=== PATIENT | male | born 1955 | race Caucasian/White ===

== ENCOUNTER 2016-07-28 08:29 | Outpatient (CLI) | payer MEDICAID | END 2016-07-28 23:59 | disposition home or self-care (01) | DX: I69.398 Other sequelae of cerebral infarction (principal); R56.9 Unspecified convulsions; E78.5 Hyperlipidemia, unspecified ==

== ENCOUNTER 2016-12-19 08:36 | Outpatient (CLI) | payer MEDICAID ==
[2016-12-19 13:32] LABS: BASOPHILS % (AUTO) 0.5 %; EOSINOPHILS # (AUTO) 0.1 10^3/uL (0.0-0.7); EOSINOPHILS % (AUTO) 2.4 %; HCT - HEMATOCRIT 41.1 % (42.0-52.0); LYMPHOCYTES # (AUTO) 1.8 10^3/uL (1.5-3.5); LYMPHOCYTES % (AUTO) 40.2 %; MEAN CORPUSCULAR HEMOGLOBIN 30.9 pg (27.0-31.0); MEAN CORPUSCULAR HGB CONC 34.1 g/dL (32.0-36.0); MEAN CORPUSCULAR VOLUME 90.8 fL (80.0-94.0); MEAN PLATELET VOLUME 7.9 fL (7.4-11.4); MONOCYTES # (AUTO) 0.3 10^3/uL (0.0-1.0); MONOCYTES % (AUTO) 7.6 %; NEUTROPHILS # (AUTO) 2.2 10^3/uL (1.5-6.6); NEUTROPHILS % (AUTO) 49.3 %; RED BLOOD COUNT 4.53 10^6/uL (4.70-6.10); RED CELL DISTRIBUTION WIDTH 13.4 % (12.0-15.0); UNCORRECTED WHITE BLOOD COUNT 4.4 x10^3/uL; WHITE BLOOD COUNT 4.4 x10^3/uL (4.8-10.8)
[2016-12-19 13:48] LABS: ALBUMIN/GLOBULIN RATIO 1.5 (1.0-2.2); CREATININE 0.9 mg/dL (0.6-1.2); POTASSIUM 3.7 mmol/L (3.5-5.0); TOTAL PROTEIN 6.8 g/dL (6.7-8.2)
[2016-12-23 17:57] LABS: TEST RESULT REPORT (())
== END 2016-12-19 08:37 | disposition home or self-care (01) ==
LOC: LAB.N 08:36
PROVIDERS: ATTEND Psychiatry & Neurology Neurology
DX: G40.209 Localization-related (focal) (partial) symptomatic epilepsy and epileptic syndromes with complex partial seizures, not intractable, without status epilepticus (principal)
CPT/HCPCS: 36415; 80053; 80175; 80201; 81599; 82607; 83921; 85025

== ENCOUNTER 2017-02-02 11:47 | Outpatient (CLI) | payer MEDICAID ==
[2017-02-02 19:42] LABS: ALBUMIN/GLOBULIN RATIO 1.6 (1.0-2.2); BILIRUBIN,TOTAL 0.8 mg/dL (0.2-1.0); CALCIUM 9.2 mg/dL (8.5-10.3); CREATININE 1.1 mg/dL (0.6-1.2); TOTAL PROTEIN 7.3 g/dL (6.7-8.2)
== END 2017-02-02 11:48 | disposition home or self-care (01) ==
LOC: LAB.N 11:47
PROVIDERS: ATTEND Family Medicine
DX: D50.0 Iron deficiency anemia secondary to blood loss (chronic) (principal)
CPT/HCPCS: 36415; 80053

== ENCOUNTER 2017-07-03 10:48 | Emergency (ER) | payer MEDICAID ==
[2017-07-03] MEDS ORDERED: CYCLOBENZAPRINE 10 MG TABLET PO STA (11:24)
[2017-07-03] MEDS ORDERED: LIDOCAINE PATCH 5% TOP PRN (11:24)
[2017-07-03] MEDS ORDERED: KETOROLAC 60 MG/2 ML VIAL IM STA (11:24)
[2017-07-03 11:28] LABS: BILIRUBIN,URINE NEGATIVE (NEGATIVE)
[2017-07-03 11:32] LABS: UA CHARGE (STRIP ONLY) YES; UR CULTURE IF IND NOT INDICATED
--- NOTE | 2017-07-03 12:08 | ED Physician Documentation ---
PD HPI BACK INJURY - Stated complaint Stated Complaint: BACK/FLANK PX - History of Present Illness Location: Left Type of injury: Fall Where injury occurred: Home Timing - onset: Yesterday Timing - details: Abrupt onset Quality: Pain, Spasm Associated symptoms: No: Fever, Weakness, Numbness Contributing factors: No: Anticoagulated, Prior back surgery Similar symptoms before: Has not had sx before Recently seen: Not recently seen - Additional information Additional information: Patient is a 61 year old male with no significant past medical history who is presenting to the emergency department for back pain. patient states that he was out walking his dog and it decided to run around and the patient fell over on the grass. patient states that he fell ok right after it happened but today he woke up and he had some pain in his back. Review of Systems Constitutional: denies: Fever, Chills Eyes: denies: Decreased vision Ears: reports: Reviewed and negative Nose: reports: Reviewed and negative Throat: reports: Reviewed and negative Cardiac: reports: Chest pain / pressure GI: denies: Nausea, Vomiting : denies: Hematuria Skin: denies: Abrasion (s), Laceration (s) Musculoskeletal: reports: Back pain Neurologic: denies: Generalized weakness, Focal weakness, Numbness PD PAST MEDICAL HISTORY - Past Medical History Past Medical History: Yes Cardiovascular: Congestive heart failure Neuro: CVA GI: GERD Psych: Depression, Anxiety - Past Surgical History Past Surgical History: Yes HEENT: Tonsil/Adenoidectomy - Present Medications Home Medications: Ambulatory Orders Medication Instructions Recorded Confirmed Aspirin [Aspir 81] 81 mg PO DAILY 09/23/13 07/03/17 Topiramate [Topamax] 50 mg PO BID 09/23/13 07/03/17 lamoTRIgine [Lamictal Odt] 200 mg PO TID 09/23/13 07/03/17 Cyclobenzaprine [Flexeril] 10 mg PO BID 07/03/17 07/03/17 Ibuprofen 600 mg PO Q6HR PRN 07/03/17 07/03/17 diazePAM [Valium] 5 - 10 mg PO TID PRN #15 tablet 07/03/17 - Allergies Allergies/Adverse Reactions: Allergies Allergy/AdvReac Type Severity Reaction Status Date / Time No Known Drug Allergies Allergy Verified 07/03/17 11:01 - Social History Does the pt smoke?: No Smoking Status: Never smoker Does the pt drink ETOH?: Yes Does the pt have substance abuse?: No - Immunizations Immunizations are current?: Yes PD ED PE NORMAL - General General: Alert and oriented X 3, No acute distress - HEENT HEENT: Atraumatic, PERRL - Neck Neck: Supple, no meningeal sign, No JVD - Cardiac Cardiac: RRR, No murmur - Respiratory Respiratory: No respiratory distress, Clear bilaterally - Abdomen Abdomen: Soft, Non tender, Non distended - Derm Derm: Normal color, Warm and dry, No rash - Extremities Extremities: No deformity, No edema - Neuro Neuro: Alert and oriented X 3, No motor deficit, No sensory deficit Eye Opening: Spontaneous Motor: Obeys Commands Verbal: Oriented GCS Score: 15 - Psych Psych: Normal mood PD ED PE EXPANDED - Back Back: Soft tissue tenderness (tenderness to palpation of left paraspinal and lateral region, no ecchymosis, no gross deformity) Results - Vitals Vitals: Vital Signs - 24 hr 07/03/17 10:53 Temperature 36.6 C Heart Rate 89 Respiratory 18 Rate Blood Pressure 156/105 H O2 Saturation 100 Oxygen O2 Source Room air - Labs Labs: Laboratory Tests 07/03/17 11:09 Urine Color YELLOW Urine Clarity CLEAR Urine pH 6.0 Ur Specific [place] >=1.030 H Urine Protein NEGATIVE Urine Glucose (UA) NEGATIVE Urine Ketones NEGATIVE Urine Occult Blood NEGATIVE Urine Nitrite NEGATIVE Urine Bilirubin NEGATIVE Urine Urobilinogen 0.2 (NORMAL) Ur Leukocyte Esterase NEGATIVE Ur Microscopic Review NOT INDICATED Urine Culture Comments NOT INDICATED PD MEDICAL DECISION MAKING - ED course Complexity details: reviewed old records, reviewed results, considered differential, d/w patient ED course: Patient was seen and examined at bedside. Patient was well appearing and had no sign of acute fracture or dislocation. patient was treated with toradol, lidoderm. Patient required no further work up and was stable for discharge with outpatient follow up. Departure - Departure Disposition: 01 Home, Self Care Clinical Impression: Back pain Condition: Good Instructions: IBUPROFEN (Adult), ANTI-INFLAMMATORY, General Follow-Up: Roby Herring MD [Primary Care Provider] - Prescriptions: diazePAM [Valium] 5 - 10 mg PO TID PRN #15 tablet PRN Reason: Spasms Comments: Your symptoms today are likely secondary to a muscle spasm. You will need to use ice and heat as necessary as well as ibuprofen and an occasional valium. You should follow up with your doctor if your symptoms persist. You may return to the emergency department at any time for new, worsening or uncontrollable symptoms.
--- NOTE | 2017-07-03 12:31 | XRAY Preliminary Report ---
Exam: XR RIBS W/PA CHEST LT IMPRESSION: Minimal lower thoracic compression fractures of unknown age. No rib fracture demonstrated. No hemothorax or pneumothorax. Small linear densities in the left lower lung, minimal atelectasis versus scarring. [facility] SITE ID: [id number]
--- NOTE | 2017-07-03 12:33 | XRAY Report ---
EXAM: LEFT RIB RADIOGRAPHY 3 VIEWS EXAM DATE: 07/03/2017. CLINICAL HISTORY: Pain. Slipped and fell. COMPARISON: None. TECHNIQUE: A view of the chest and anterior and posterior oblique views of the left ribs. FINDINGS: Bones: Mid and lower thoracic compression fracture of unknown age. No rib fracture demonstrated. Lungs: Normal vasculature. Small linear densities in the left lower lung. The lungs are otherwise kaleb ar. No pleural fluid or pneumothorax. Mediastinum: Heart size is normal. Mild aortic tortuosity, otherwise normal mediastinal contours. IMPRESSION: Minimal lower thoracic compression fractures of unknown age. No rib fracture demonstrated. No hemothorax or pneumothorax. Small linear densities in the left lower lung, minimal atelectasis versus scarring. [facility] Referring Provider Line: [phone] SITE ID: [id number]
[2017-07-03 12:50] VITALS: BP 139/99
== END 2017-07-03 12:49 | disposition home or self-care (01) ==
LOC: ED 10:48
DX: M54.9 Dorsalgia, unspecified (principal); W18.30XA Fall on same level, unspecified, initial encounter; I50.9 Heart failure, unspecified; Z79.82 Long term (current) use of aspirin
CPT/HCPCS: 71101; 81003; 96372; 99283; A9270; 81001; 87086

== ENCOUNTER 2017-08-07 10:15 | Outpatient (CLI) | payer MEDICAID ==
[2017-08-07 12:56] LABS: BASOPHILS % (AUTO) 0.4 %; EOSINOPHILS # (AUTO) 0.1 10^3/uL (0.0-0.7); EOSINOPHILS % (AUTO) 1.6 %; HGB - HEMOGLOBIN 14.1 g/dL (14.0-18.0); LYMPHOCYTES # (AUTO) 2.1 10^3/uL (1.5-3.5); LYMPHOCYTES % (AUTO) 37.4 %; MEAN CORPUSCULAR HEMOGLOBIN 30.9 pg (27.0-31.0); MEAN CORPUSCULAR HGB CONC 34.4 g/dL (32.0-36.0); MEAN PLATELET VOLUME 7.4 fL (7.4-11.4); MEAN RETIC VALUE 110.8; MONOCYTES # (AUTO) 0.3 10^3/uL (0.0-1.0); MONOCYTES % (AUTO) 5.1 %; NEUTROPHILS # (AUTO) 3.1 10^3/uL (1.5-6.6); NEUTROPHILS % (AUTO) 55.5 %; PLT - PLATELET COUNT 314 10^3/uL (130-450); RED BLOOD COUNT 4.55 10^6/uL (4.70-6.10); RED CELL DISTRIBUTION WIDTH 12.9 % (12.0-15.0); WHITE BLOOD COUNT 5.7 x10^3/uL (4.8-10.8)
[2017-08-07 13:27] LABS: FERRITIN 48.9 ng/mL (23.9-336.2)
[2017-08-07 13:31] LABS: FOLATE 20.01 ng/mL (5.90 - >24.8)
[2017-08-07 13:34] LABS: ALBUMIN 4.1 g/dL (3.2-5.5); ALBUMIN/GLOBULIN RATIO 1.4 (1.0-2.2); ALKALINE PHOSPHATASE 74 IU/L (42-121); ALT ALANINE AMINOTRANSFERASE 12 IU/L (10-60); AST ASPARTATE AMINOTRANSFERASE 16 IU/L (10-42); BUN - BLOOD UREA NITROGEN 12 mg/dL (6-20); CALCIUM 8.7 mg/dL (8.5-10.3); CARBON DIOXIDE - CO2 24 mmol/L (21-32); CHLORIDE 110 mmol/L (101-111); CHOL/HDL RATIO 4.8 (<5.0); CHOLESTEROL 236 mg/dL; GFR - MDRD 76 (>89); GLUCOSE 83 mg/dL (70-100); HDL CHOLESTEROL 49 mg/dL; LDL CHOLESTEROL,CALCULATED 161 mg/dL; LDL/HDL RATIO 3.3 (<3.6); SODIUM 138 mmol/L (135-145); VLDL CHOLESTEROL 26 mg/dL
== END 2017-08-07 10:16 ==
LOC: LAB.N 10:15
PROVIDERS: ATTEND Family Medicine
DX: E78.5 Hyperlipidemia, unspecified (principal); D50.0 Iron deficiency anemia secondary to blood loss (chronic); I69.398 Other sequelae of cerebral infarction; R56.9 Unspecified convulsions
CPT/HCPCS: 36415; 80053; 80061; 82607; 82728; 82746; 83721; 85025; 85044

== ENCOUNTER 2017-10-23 08:00 | Outpatient (CLI) | payer MEDICAID ==
[2017-10-23 19:21] LABS: BASOPHILS % (AUTO) 0.5 %; EOSINOPHILS # (AUTO) 0.1 10^3/uL (0.0-0.7); EOSINOPHILS % (AUTO) 1.6 %; HGB - HEMOGLOBIN 13.5 g/dL (14.0-18.0); LYMPHOCYTES # (AUTO) 1.8 10^3/uL (1.5-3.5); LYMPHOCYTES % (AUTO) 37.3 %; MEAN CORPUSCULAR HEMOGLOBIN 30.6 pg (27.0-31.0); MEAN CORPUSCULAR HGB CONC 33.7 g/dL (32.0-36.0); MEAN CORPUSCULAR VOLUME 90.9 fL (80.0-94.0); MEAN PLATELET VOLUME 7.6 fL (7.4-11.4); MONOCYTES # (AUTO) 0.4 10^3/uL (0.0-1.0); MONOCYTES % (AUTO) 7.7 %; NEUTROPHILS # (AUTO) 2.5 10^3/uL (1.5-6.6); NEUTROPHILS % (AUTO) 52.9 %; PLT - PLATELET COUNT 231 10^3/uL (130-450); RED BLOOD COUNT 4.43 10^6/uL (4.70-6.10); RED CELL DISTRIBUTION WIDTH 13.4 % (12.0-15.0); WHITE BLOOD COUNT 4.8 x10^3/uL (4.8-10.8)
[2017-10-23 19:40] LABS: ALBUMIN 4.1 g/dL (3.2-5.5); ALBUMIN/GLOBULIN RATIO 1.5 (1.0-2.2); BILIRUBIN,TOTAL 0.9 mg/dL (0.2-1.0); CALCIUM 8.6 mg/dL (8.5-10.3); CREATININE 0.7 mg/dL (0.6-1.2); TOTAL PROTEIN 6.9 g/dL (6.7-8.2)
== END 2017-10-23 08:01 | disposition home or self-care (01) ==
LOC: LAB.N 08:00
PROVIDERS: ATTEND Psychiatry & Neurology Neurology
DX: G40.109 Localization-related (focal) (partial) symptomatic epilepsy and epileptic syndromes with simple partial seizures, not intractable, without status epilepticus (principal)
CPT/HCPCS: 36415; 80053; 80175; 80201; 81599; 85025

== ENCOUNTER 2018-03-27 10:13 | Outpatient (CLI) | payer MEDICAID ==
--- NOTE | 2018-03-27 17:36 | XRAY Report ---
Reason: THUMB PAIN,RIGHT Procedure Date: 03/27/2018 Accession Number: [id number] / [id number] Procedure: XR - Finger(s) RT CPT Code: FULL RESULT: EXAM: RIGHT FIRST DIGIT RADIOGRAPHY EXAM DATE: 03/27/2018 10:16 AM. CLINICAL HISTORY: Thumb pain, right. COMPARISON: None. TECHNIQUE: 3 views. FINDINGS: Bones: There is osseous exuberance at the medial aspect of the distal tuft of the first distal phalanx. Joints: The base of the thumb demonstrates mild degenerative changes at the first carpometacarpal joint. Soft Tissues: Normal. No soft tissue swelling. IMPRESSION: Correlate osseous exuberance along the medial aspect of the distal thumb to the site of the patient's pain. This is a nonspecific finding, but can be seen in the setting of remote trauma or chronic stress at tendinous insertions. [facility]
== END 2018-03-27 10:14 | disposition home or self-care (01) ==
LOC: DI 10:13
PROVIDERS: ATTEND Family Medicine
DX: M79.644 Pain in right finger(s) (principal)
CPT/HCPCS: 73140

== ENCOUNTER 2018-04-17 08:27 | Outpatient (CLI) | payer MEDICAID ==
[2018-04-17 12:46] LABS: BASOPHILS % (AUTO) 0.5 %; EOSINOPHILS # (AUTO) 0.1 10^3/uL (0.0-0.7); EOSINOPHILS % (AUTO) 1.8 %; HGB - HEMOGLOBIN 14.7 g/dL (14.0-18.0); LYMPHOCYTES % (AUTO) 35.1 %; MEAN CORPUSCULAR HEMOGLOBIN 31.2 pg (27.0-31.0); MEAN CORPUSCULAR HGB CONC 34.2 g/dL (32.0-36.0); MEAN CORPUSCULAR VOLUME 91.4 fL (80.0-94.0); MEAN PLATELET VOLUME 7.4 fL (7.4-11.4); MONOCYTES # (AUTO) 0.4 10^3/uL (0.0-1.0); MONOCYTES % (AUTO) 7.5 %; NEUTROPHILS # (AUTO) 3.2 10^3/uL (1.5-6.6); NEUTROPHILS % (AUTO) 55.1 %; PLT - PLATELET COUNT 282 10^3/uL (130-450); RED CELL DISTRIBUTION WIDTH 13.1 % (12.0-15.0); WHITE BLOOD COUNT 5.8 x10^3/uL (4.8-10.8)
[2018-04-17 13:06] LABS: ALBUMIN 4.1 g/dL (3.2-5.5); ALBUMIN/GLOBULIN RATIO 1.5 (1.0-2.2); BILIRUBIN,TOTAL 0.9 mg/dL (0.2-1.0); CALCIUM 9.1 mg/dL (8.5-10.3); CREATININE 0.9 mg/dL (0.6-1.2); TOTAL PROTEIN 6.9 g/dL (6.7-8.2)
== END 2018-04-17 08:28 ==
LOC: LAB.N 08:27
PROVIDERS: ATTEND Psychiatry & Neurology Neurology
DX: G40.109 Localization-related (focal) (partial) symptomatic epilepsy and epileptic syndromes with simple partial seizures, not intractable, without status epilepticus (principal)
CPT/HCPCS: 36415; 80053; 80175; 81599; 85025

== ENCOUNTER 2019-01-21 09:14 | Day surgery (SDC) | payer MEDICAID ==
[2019-01-21] MEDS ORDERED: LACTATED RINGERS 1,000 ML IV ONE (09:42)
[2019-01-21] MEDS ORDERED: MIDAZOLAM 2 MG/2 ML VIAL IVP ONE (10:18)
[2019-01-21] MEDS ORDERED: fentaNYL 250 MCG/5 ML VIAL IVP ONE (10:18)
[2019-01-21 11:54] VITALS: BP 116/89
== END 2019-01-21 09:15 | disposition home or self-care (01) ==
LOC: SDS 09:14
PROVIDERS: ATTEND Internal Medicine Gastroenterology
PROC: 0DBL8ZZ Excision of Transverse Colon, Via Natural or Artificial Opening Endoscopic (ICD-10-PCS; 2019-01-21)
PROC: 0DBL8ZZ Excision of Transverse Colon, Via Natural or Artificial Opening Endoscopic (ICD-10-PCS; principal; 2019-01-21 10:00)
DX: Z12.11 Encounter for screening for malignant neoplasm of colon (principal); D12.3 Benign neoplasm of transverse colon; K57.30 Diverticulosis of large intestine without perforation or abscess without bleeding; K64.8 Other hemorrhoids; K64.4 Residual hemorrhoidal skin tags; R15.9 Full incontinence of feces; I69.398 Other sequelae of cerebral infarction; G40.909 Epilepsy, unspecified, not intractable, without status epilepticus; Z87.891 Personal history of nicotine dependence
CPT/HCPCS: 45380; 45385; J3010; J7120

== ENCOUNTER 2019-04-10 15:31 | Outpatient (CLI) | payer MEDICAID | END 2019-04-10 23:59 | disposition home or self-care (01) | LOC: LAB.N 15:31 | PROVIDERS: ATTEND Psychiatry & Neurology Neurology | DX: G40.109 Localization-related (focal) (partial) symptomatic epilepsy and epileptic syndromes with simple partial seizures, not intractable, without status epilepticus (principal) | CPT/HCPCS: 36415; 80175; 80201; 81599 ==

== ENCOUNTER 2019-06-27 15:31 | Emergency (ER) | payer MEDICAID ==
[2019-06-27 15:37] VITALS: BP 142/90
--- NOTE | 2019-06-27 15:55 | ED Physician Documentation ---
History of Present Illness - Stated complaint Stated Complaint: LT HEAD LUMP - Chief complaint Chief Complaint: Heent - History obtained from History obtained from: Patient - History of Present Illness Timing: Today Pain level max: 1 Pain level now: 1 - Additonal information Additional information: 63-year-old male presents the emergency department stating that he feels a bump on the side of his head. He states he does not know how it happened. He was combing his hair today and noticed blood in the area. Does not recall any injury. Nothing makes it better or worse. Review of Systems Constitutional: denies: Fever, Chills Nose: denies: Rhinorrhea / runny nose, Congestion Skin: denies: Rash PD PAST MEDICAL HISTORY - Past Medical History Cardiovascular:  Endocrine/Autoimmune: HyPOthyroidism GI: GERD Psych: Depression, Anxiety - Past Surgical History Past Surgical History: Yes HEENT: Tonsil/Adenoidectomy - Present Medications Home Medications: Ambulatory Orders Medication Instructions Recorded Confirmed Aspirin [Aspir 81] 81 mg PO DAILY 09/23/13 07/03/17 Topiramate [Topamax] 50 mg PO BID 09/23/13 07/03/17 lamoTRIgine [Lamictal Odt] 100 mg PO TID 09/23/13 07/03/17 - Allergies Allergies/Adverse Reactions: Allergies Allergy/AdvReac Type Severity Reaction Status Date / Time No Known Drug Allergies Allergy Verified 06/27/19 15:34 - Social History Does the pt smoke?: No Smoking Status: Never smoker Does the pt drink ETOH?: Yes Does the pt have substance abuse?: No - Immunizations Immunizations are current?: Yes PD ED PE NORMAL - Vitals Vital signs reviewed: Yes - General General: Alert and oriented X 3, No acute distress, Well developed/nourished - HEENT HEENT: PERRL, Moist mucous membranes, Other (Abrasion to the left parietal area. No temporal artery tenderness. No scalp hematomas. No palpable skull fractures.) - Neck Neck: Supple, no meningeal sign - Cardiac Cardiac: RRR - Respiratory Respiratory: No respiratory distress, Clear bilaterally - Derm Derm: Warm and dry - Neuro Neuro: Alert and oriented X 3 - Psych Psych: Normal mood, Normal affect Results - Vitals Vitals: Oxygen O2 Source Room air PD MEDICAL DECISION MAKING - ED course Complexity details: considered differential, d/w patient ED course: Patient with an abrasion to the head. No other apparent injury. No scalp hematomas or palpable skull fractures. No rash. Patient counseled regarding signs and symptoms for which I believe and urgent re-evaluation would be necessary. Patient with good understanding of and agreement to plan and is comfortable going home at this time This document was made in part using voice recognition software. While efforts are made to proofread this document, sound alike and grammatical errors may occur. Departure - Departure Disposition: 01 Home, Self Care Clinical Impression: Scalp abrasion Qualifiers: Encounter type: initial encounter Qualified Code(s): S00.01XA - Abrasion of scalp, initial encounter Condition: Good Instructions: ED Abrasion Follow-Up: Jewel Plascencia PA-C [Primary Care Provider] - Within 1 week Comments: Return if you worsen. It appears to be an abrasion today. You can apply antibiotic ointment if you choose. Discharge Date/Time: 06/27/19 15:59
== END 2019-06-27 15:59 | disposition home or self-care (01) ==
LOC: ED 15:31
DX: S00.01XA Abrasion of scalp, initial encounter (principal); X58.XXXA Exposure to other specified factors, initial encounter; Z79.82 Long term (current) use of aspirin
CPT/HCPCS: 99281; 99282

== ENCOUNTER 2019-09-05 18:23 | Outpatient (CLI) | payer MEDICAID | END 2019-09-05 23:59 | disposition critical access hospital (66) | LOC: EMS 18:23 | PROVIDERS: ATTEND Surgery | DX: R53.1 Weakness (principal) | CPT/HCPCS: A0425; A0429; A0999 ==

== ENCOUNTER 2019-09-05 18:37 | Emergency (ER) | payer MEDICAID ==
--- NOTE | 2019-09-05 18:43 | ED Physician Documentation ---
PD HPI FOCAL NEURO - Stated complaint Stated Complaint: L SIDE WEAKNESS - History obtained from History obtained from: Patient, EMS - History of Present Illness Timing - onset: Today (63-year-old gent with history of prior stroke with seizure disorder but no recent seizures maintained on Lamictal presents with acute left-sided deficits that started at 1751 this evening. Brought in by EMS. Blood sugar prior to arrival was normal in the 90s. He has not improved or gotten worse since it happened. He does have a mild headache with it. No history of intracranial bleeding or other major bleeding. No anticoagulants.) Review of Systems Ten Systems: 10 systems reviewed and negative Constitutional: denies: Fever, Chills Cardiac: denies: Chest pain / pressure, Palpitations Respiratory: denies: Dyspnea, Cough PD PAST MEDICAL HISTORY - Past Medical History Past Medical History: Yes Cardiovascular:  Endocrine/Autoimmune: HyPOthyroidism GI: GERD Psych: Depression, Anxiety - Past Surgical History Past Surgical History: Yes HEENT: Tonsil/Adenoidectomy - Present Medications Home Medications: Ambulatory Orders Medication Instructions Recorded Confirmed Aspirin [Aspir 81] 81 mg PO DAILY 09/23/13 07/03/17 Topiramate [Topamax] 50 mg PO BID 09/23/13 07/03/17 lamoTRIgine [Lamictal Odt] 100 mg PO TID 09/23/13 07/03/17 Sumatriptan Succinate [Imitrex] mg SQ 09/05/19 - Allergies Allergies/Adverse Reactions: Allergies Allergy/AdvReac Type Severity Reaction Status Date / Time No Known Drug Allergies Allergy Verified 06/27/19 15:34 - Social History Does the pt smoke?: No Smoking Status: Former smoker Does the pt drink ETOH?: Yes Does the pt have substance abuse?: No - Family History Family history: reports: Non contributory - Immunizations Immunizations are current?: Yes PD ED PE NORMAL - Vitals Vital signs reviewed: Yes - General General: Alert and oriented X 3, No acute distress - HEENT HEENT: PERRL (small pupils) - Neck Neck: Supple, no meningeal sign, No bony TTP - Cardiac Cardiac: RRR, No murmur - Respiratory Respiratory: No respiratory distress, Clear bilaterally - Abdomen Abdomen: Non tender - Back Back: No CVA TTP, No spinal TTP - Derm Derm: Normal color, Warm and dry - Extremities Extremities: No edema, No calf tenderness / cord - Neuro Neuro: Alert and oriented X 3, Normal speech NIHSS - Time Time: 18:40 - Level of Consciousness Level of consciousness: (0) Alert, Keenly responsive LOC Questions: (0) Answers both Q's correct LOC Commands: (0) Performs both correctly - Gaze Best Gaze: (1) Partial gaze palsy (can look to the left but can't hold that gaze well) - Visual Visual: (0) No loss - Facial Palsy Facial Palsy: (1) Minor paralysis (left) - Motor Arms (both separate) Motor Arm (right): (0) No drift Motor Arm (left): (3) No effort against gravity - Motor Legs (both separate) Motor Leg (right): (0) No drift Motor Leg (left): (2) Some effort against gravity - Limb Ataxia Limb Ataxia: (0) Absent - Sensory Sensory: (1) [id number] loss (left arm/leg/face) - Best Language Best Language: (0) No aphasia - Dysarthria Dysarthria: (0) Normal - Extinction and Inattention (formally neg Extinction and inattention: (0) No abnormality - Total Score/Results Total Score/Result: 8 Results - Vitals Vitals: Vital Signs - 24 hr 09/05/19 09/05/19 18:35 19:40 Temperature 36.5 C Heart Rate 78 73 Respiratory 21 20 Rate Blood Pressure 138/91 H 142/92 H O2 Saturation 98 98 Oxygen O2 Source Room air - EKG (time done) 1910 Rate: Rate (enter#) (72) Rhythm: NSR [place]: Normal Intervals: Normal [place] QRS: Normal Ischemia: Non specific changes (Slightly flat inferior T waves without other acute abnormality) Computer interpretation: Agree with computer - Labs Labs: Laboratory Tests 09/05/19 09/05/19 09/05/19 18:40 18:40 18:40 WBC 7.2 RBC 4.59 L Hgb 14.3 Hct 41.3 L MCV 90.0 MCH 31.2 H MCHC 34.6 RDW 13.2 Plt Count 261 MPV 9.0 Neut # (Auto) 3.8 Lymph # (Auto) 2.8 [place] # (Auto) 0.5 Eos # (Auto) 0.1 Baso # (Auto) 0.0 Absolute Nucleated RBC 0.00 Nucleated RBC % 0.0 PT 12.2 INR 1.1 Sodium 137 Potassium 3.5 Chloride 107 Carbon Dioxide 21 Anion Gap 9.0 BUN 12 Creatinine 1.0 Estimated GFR (MDRD) 75 L Glucose 107 H Calcium 8.8 Total Bilirubin 0.9 AST 14 ALT 12 Alkaline Phosphatase 69 Total Protein 7.5 Albumin 4.3 Globulin 3.2 Albumin/Globulin Ratio 1.3 Lipase 34 - Rads (name of study) CTA Head Radiology: EMP read contemporaneously (Large right MCA encephalomalacia) CT angiography of the head Radiology: Discussed with rads, EMP read contemporaneously (Abrupt termination of the opacification of the right cervical ICA concerning for possibly acute thrombotic occlusion, also termination of the right MCA of the proximal M2 segment concerning for possibly acute thrombotic occlusion.) PD MEDICAL DECISION MAKING - ED course ED course: 63-year-old gentleman presents with an acute debilitating stroke affecting the left side. He has a history of prior stroke which was basically silent with minimal residual deficits of the left arm but no need for use of walking implements or any significant disability. This all changed tonight at exactly 1751 when he had difficulty getting off the couch and they are sure of the time of onset. They are also persistent and sure about the circumstances surrounding the onset and that there was no seizure activity. Looking at the head CT and prior MRI from 2010It looks like he had a significant large area of encephalomalacia from his prior stroke and I am surprised he did not have more deficits from his prior stroke. We talked about the potential that this may have been up a Luis's paralysis that he had tonight, but there was no seizure activity noted. He was seen and consulted by Dr. Israel Noe at [facility] via tele-stroke neurology and everybody is in agreement including the patient after discussion of risks and benefits, and extensive discussion, that that we would go ahead with TPA and the bolus was given at 1927. Note that the patient gives his significant other Jesus Toussaint (Tony) permission to make decisions for him if he becomes incapacitated. - Critical Care Time(min): 45 Time Includes: Direct patient care, Review records, Reassess patient, Document care, Coordinate care, Medical consult, Family consult for tx dec (S/[place]) Data interpretation: Labs, Pulse ox Procedures included in critical care time: Peripheral IV Procedures excluded from critical care time: EKG Departure - Departure Disposition: 02 Transfer Acute Care Hosp Clinical Impression: Right carotid artery occlusion Cerebrovascular accident (CVA) Qualifiers: CVA mechanism: embolism Precerebral and cerebral artery: middle cerebral artery Laterality of affected vessel: right Qualified Code(s): I63.411 - Cerebral infarction due to embolism of right middle cerebral artery Condition: Critical
[2019-09-05 18:59] LABS: BASOPHILS % (AUTO) 0.4 %; EOSINOPHILS # (AUTO) 0.1 10^3/uL (0.0-0.7); EOSINOPHILS % (AUTO) 1.1 %; HGB - HEMOGLOBIN 14.3 g/dL (14.0-18.0); INR 1.1 (0.8-1.2); LYMPHOCYTES # (AUTO) 2.8 10^3/uL (1.5-3.5); LYMPHOCYTES % (AUTO) 38.4 %; MEAN CORPUSCULAR HEMOGLOBIN 31.2 pg (27.0-31.0); MEAN CORPUSCULAR HGB CONC 34.6 g/dL (32.0-36.0); MONOCYTES # (AUTO) 0.5 10^3/uL (0.0-1.0); MONOCYTES % (AUTO) 7.1 %; NEUTROPHILS # (AUTO) 3.8 10^3/uL (1.5-6.6); NEUTROPHILS % (AUTO) 52.6 %; PLT - PLATELET COUNT 261 10^3/uL (130-450); PT - PROTHROMBIN TIME 12.2 secs (9.9-12.6); RED BLOOD COUNT 4.59 10^6/uL (4.70-6.10); RED CELL DISTRIBUTION WIDTH 13.2 % (12.0-15.0); WHITE BLOOD COUNT 7.2 x10^3/uL (4.8-10.8)
[2019-09-05] MEDS ORDERED: WATER FOR INJECTION STERILE IV STA (19:06)
[2019-09-05] MEDS ORDERED: ALTEPLASE IV STA (19:06)
[2019-09-05] MEDS ORDERED: IOVERSOL 320 100 ML VIAL IVP ONE ×2 (19:07→19:08)
[2019-09-05 19:08] LABS: ALBUMIN 4.3 g/dL (3.2-5.5); ALBUMIN/GLOBULIN RATIO 1.3 (1.0-2.2); BILIRUBIN,TOTAL 0.9 mg/dL (0.2-1.0); CALCIUM 8.8 mg/dL (8.5-10.3); TOTAL PROTEIN 7.5 g/dL (6.7-8.2)
[2019-09-05] MEDS ORDERED: ALTEPLASE 100 MG VIAL ONE (19:12)
--- NOTE | 2019-09-05 19:35 | CT Report ---
Reason: CVA Procedure Date: 09/05/2019 Accession Number: [id number] / [id number] Procedure: CT - Head W/O Stroke Protocol CPT Code: Addended Final Report FULL RESULT: EXAM: CT HEAD EXAM DATE: 09/05/2019 06:51 PM. CLINICAL HISTORY: 63-year-old male, left-sided weakness. COMPARISON: BRAIN 08/20/2010 12:24 PM. TECHNIQUE: Multiaxial CT images were obtained from the foramen magnum to the vertex. Reformats: Sagittal and coronal. IV contrast: None. In accordance with CT protocol optimization, one or more of the following dose reduction techniques were utilized for this exam: automated exposure control, adjustment of mA and/or KV based on patient size, or use of iterative reconstructive technique. FINDINGS: Parenchyma: Redemonstration large chronic right MCA territory as evidenced by cystic encephalomalacia and gliosis involving right frontal, parietal, and temporal lobes. Acute extension not excludable by CT. No evidence of acute intracranial hemorrhage. Extraaxial Spaces: Normal for age. No subdural or epidural collections identified. Ventricles: Stable size and configuration of the ventricles, including ex-vacuo dilatation of the right lateral ventricle. Sinuses and Orbits: Imaged paranasal sinuses, orbits, and mastoids show no significant abnormality. Bones: No evidence of fracture or calvarial defect. Other: None. IMPRESSION: 1. Redemonstration large chronic right MCA territory as evidenced by cystic encephalomalacia and gliosis involving right frontal, parietal, and temporal lobes. 2. Acute extension not excludable by CT. No CT evidence of acute infarct elsewhere. ASPECTS 10. 3. No evidence of acute intracranial hemorrhage. [facility] The critical test notification system was initiated by Dr. Martínez Yeager at 07:22 PM on 09/05/2019. ADDENDUM: 09/05/19 19:25 The above critical test findings were discussed with Moustapha Anguiano by Dr. Martínez Yeager at 07:25 PM on 09/05/2019.
[2019-09-05 19:40] VITALS: BP 142/92
--- NOTE | 2019-09-05 19:57 | CT Report ---
Reason: L sided facial droop, L deficits Procedure Date: 09/05/2019 Accession Number: [id number] / [id number] Procedure: CT - ANGIO HEAD W/WO CPT Code: Final Report FULL RESULT: EXAM: CT ANGIOGRAM HEAD AND NECK. CT SCAN HEAD WITH CONTRAST. EXAM DATE: 09/05/2019 06:51 PM. CLINICAL HISTORY: 63-year-old male. L sided facial droop, L deficits. COMPARISON: HEAD W/O STROKE PROTOCOL 09/05/2019 6:51 PM NECK ANGIO 09/05/2019 6:51 PM MRA BRAIN WITHOUT AND MRA NECK WITH CONTRAST 10/04/2009 11:40 AM. TECHNIQUE: Routine axial helical CTA imaging was performed from the aortic arch through the [place]. Routine axial CT imaging of the head was performed following contrast administration. Reconstructions: Routine multiplanar 3D MIP reconstructions. IV contrast: OPTIRAY 320. NASCET Criteria are used for stenosis measurements. In accordance with CT protocol optimization, one or more of the following dose reduction techniques were utilized for this exam: automated exposure control, adjustment of mA and/or KV based on patient size, or use of iterative reconstructive technique. FINDINGS: CT SCAN HEAD: Noncontrast CT head dictated separately. No abnormal enhancement on the postcontrast CT head. CT ANGIOGRAM EXTRACRANIAL CIRCULATION: The visualized arch is unremarkable. Great vessels are patent and unremarkable. Right Carotid: Abrupt termination of opacification in the cervical right ICA just 11 mm distal to the bifurcation, concerning for age indeterminate, possibly acute thrombotic occlusion. The common carotid and external carotid arteries are patent. Left Carotid: The common carotid, internal carotid, and external carotid arteries are widely patent. No dissection, significant atherosclerotic plaque, or calcification identified. Vertebrals: The vertebrobasilar system shows no stenosis, dissection, aneurysm, or significant atherosclerotic disease. CT ANGIOGRAM INTRACRANIAL CIRCULATION: RIGHT: Internal Carotid artery: There is resumption of contrast opacification within the proximal supraclinoid right ICA, likely from retrograde flow. The more proximal intracranial right ICA does not opacify. Anterior Cerebral Artery: Patent without significant stenosis, aneurysm, or vascular malformation. Middle Cerebral Artery: Abrupt termination of the right MCA at the proximal M2 segment, 9.5 mm distal to the origin. This is concerning for age indeterminate, possibly acute thrombotic occlusion. There is only minimal reconstitution of the M2 and more distal branches of right MCA, likely from collateral flow. Posterior Cerebral Artery: Patent without significant stenosis, aneurysm, or vascular malformation. Posterior Communicating Artery: Not visualized, aplastic versus markedly hypoplastic LEFT: Internal Carotid artery: No evidence of dissection. No evidence of aneurysm along the intracranial ICA. Anterior Cerebral Artery: Patent without significant stenosis, aneurysm, or vascular malformation. Middle Cerebral Artery: Patent without significant stenosis, aneurysm, or vascular malformation. Posterior Cerebral Artery: Patent without significant stenosis, aneurysm, or vascular malformation. Posterior Communicating Artery: Not visualized, aplastic versus markedly hypoplastic CENTRAL: Anterior Communicating Artery: Patent. No aneurysm. The dural venous sinuses are patent. Other: The visualized lung apices are clear. Mild to moderate multilevel degenerative spondylosis. The visualized soft tissues of the neck demonstrate no acute abnormality. IMPRESSION: CT HEAD: 1. Noncontrast CT head dictated separately. 2. No abnormal enhancement on the postcontrast CT head. CTA HEAD AND NECK: 1. Abrupt termination of opacification in the cervical right ICA just 11 mm distal to the bifurcation, concerning for age indeterminate, possibly acute thrombotic occlusion. 2. There is resumption of contrast opacification within the proximal supraclinoid right ICA, likely from retrograde flow. The more proximal intracranial right ICA does not opacify. 3. Abrupt termination of the right MCA at the proximal M2 segment, 9.5 mm distal to the origin. This is concerning for age indeterminate, possibly acute thrombotic occlusion. This represents tandem occlusion given occlusion of the right ICA in the neck. 4. There is only minimal reconstitution of the M2 and more distal branches of right MCA, likely from collateral flow. OTHER: 1. No other acute findings. [facility] The critical result notification system was initiated by Dr. Martínez Yeager at 07:42 PM on 09/05/2019. The above critical result findings were discussed with Moustapha Anguiano by Dr. Martínez Yeager at 07:44 PM on 09/05/2019.
== END 2019-09-05 20:20 | disposition short-term general hospital (02) ==
LOC: EDUNIT# → ED 18:37
DX: I63.411 Cerebral infarction due to embolism of right middle cerebral artery (principal); I65.21 Occlusion and stenosis of right carotid artery; G81.94 Hemiplegia, unspecified affecting left nondominant side; R29.708 NIHSS score 8; I69.834 Monoplegia of upper limb following other cerebrovascular disease affecting left non-dominant side; G40.909 Epilepsy, unspecified, not intractable, without status epilepticus; Z79.82 Long term (current) use of aspirin; Z87.891 Personal history of nicotine dependence
CPT/HCPCS: 36415; 37195; 70496; 70498; 80053; 83690; 85025; 85610; 93005; 99291; J2997; Q9967; 70450; 96374

== ENCOUNTER 2020-01-30 11:41 | Outpatient (CLI) | payer MEDICARE | END 2020-01-30 11:42 | disposition home or self-care (01) | LOC: COV 11:41 | PROVIDERS: ATTEND Family Medicine | DX: R05 Cough (principal); M79.10 Myalgia, unspecified site; R09.81 Nasal congestion; Z20.828 Contact with and (suspected) exposure to other viral communicable diseases ==

== ENCOUNTER 2020-06-22 10:36 | Outpatient (CLI) | payer MEDICARE, MEDICAID ==
[2020-06-22 18:37] LABS: BASOPHILS % (AUTO) 0.6 %; EOSINOPHILS # (AUTO) 0.1 10^3/uL (0.0-0.7); EOSINOPHILS % (AUTO) 1.7 %; HGB - HEMOGLOBIN 14.8 g/dL (14.0-18.0); LYMPHOCYTES # (AUTO) 1.8 10^3/uL (1.5-3.5); LYMPHOCYTES % (AUTO) 33.5 %; MEAN CORPUSCULAR HEMOGLOBIN 30.5 pg (27.0-31.0); MEAN CORPUSCULAR HGB CONC 32.2 g/dL (32.0-36.0); MEAN CORPUSCULAR VOLUME 94.7 fL (80.0-94.0); MEAN PLATELET VOLUME 9.5 fL (7.4-11.4); MONOCYTES # (AUTO) 0.4 10^3/uL (0.0-1.0); MONOCYTES % (AUTO) 7.6 %; NEUTROPHILS % (AUTO) 56.2 %; PLT - PLATELET COUNT 259 10^3/uL (130-450); RED BLOOD COUNT 4.86 10^6/uL (4.70-6.10); RED CELL DISTRIBUTION WIDTH 12.8 % (12.0-15.0); WHITE BLOOD COUNT 5.3 x10^3/uL (4.8-10.8)
[2020-06-22 18:58] LABS: ALBUMIN 4.6 g/dL (3.2-5.5); ALBUMIN/GLOBULIN RATIO 1.5 (1.0-2.2); ALKALINE PHOSPHATASE 85 IU/L (42-121); ALT ALANINE AMINOTRANSFERASE 12 IU/L (10-60); AST ASPARTATE AMINOTRANSFERASE 14 IU/L (10-42); BILIRUBIN,TOTAL 1.4 mg/dL (0.2-1.0); BUN - BLOOD UREA NITROGEN 14 mg/dL (6-20); CALCIUM 9.4 mg/dL (8.5-10.3); CARBON DIOXIDE - CO2 22 mmol/L (21-32); CHLORIDE 109 mmol/L (101-111); CHOLESTEROL 187 mg/dL; CREATININE 1.1 mg/dL (0.6-1.2); GLUCOSE 74 mg/dL (70-100); HDL CHOLESTEROL 62 mg/dL; LDL CHOLESTEROL,CALCULATED 104 mg/dL; LDL/HDL RATIO 1.7 (<3.6); SODIUM 141 mmol/L (135-145); TOTAL PROTEIN 7.6 g/dL (6.7-8.2); VLDL CHOLESTEROL 21 mg/dL
[2020-06-23 12:17] LABS: HEPATITIS B SURFACE ANTIGEN NON-REACTIVE (NON-REACTIVE)
[2020-06-23 12:18] LABS: HEPATITIS C ANTIBODY NON-REACTIVE (NON-REACTIVE)
[2020-06-23 13:22] LABS: HIV AG/AB 4TH GEN NON-REACTIVE (NON-REACTIVE)
== END 2020-06-22 23:59 | disposition home or self-care (01) ==
LOC: LAB.WCP 10:36
PROVIDERS: ATTEND Internal Medicine
DX: I69.954 Hemiplegia and hemiparesis following unspecified cerebrovascular disease affecting left non-dominant side (principal); Z12.5 Encounter for screening for malignant neoplasm of prostate; F32.9 Major depressive disorder, single episode, unspecified; Z87.19 Personal history of other diseases of the digestive system
CPT/HCPCS: 36415; 80053; 80061; 84443; 85025; 86592; 86704; 86803; 87340; G0103; G0475; 81599; 83721; 84153; 87389

== ENCOUNTER 2020-09-15 13:04 | Outpatient (CLI) | payer MEDICARE, MEDICAID ==
--- NOTE | 2020-09-15 13:59 | SLEEP CARE CONSULTATION ---
Information from patient questionnaire entered by Mike Yoder. I have reviewed and concur with the information entered by Mike Yoder. This document represents the service I personally performed and the decisions made by me, Sandy Multani ARNP. History of Present Illness Service Date and Time: 09/15/2020 1304 Reason for Visit: New patient Chief Complaint: reports: Unrefreshed sleep, Snoring, Excessive daytime sleepiness, Other (?). denies: Observed pauses in breathing Usual bedtime: betw 10-11 PM Time it takes to fall asleep: seconds Snores at night: Yes Observed to quit breathing while asleep: No Sleeps alone due to snoring: No Number of times waking at night: 1-2 Reasons for waking at night: reports: Other (wake up to see what time it is) Toss, Turn, or Twitch while sleeping: No (occasionally toss/turn) Recalls having dreams: Yes Usually gets out of bed at: 0800 Feels refreshed in the morning: No Morning headache: Yes (sometimes; doesn't get them since stroke last year) Sleepy or fatigued during the day: Yes Ever fallen asleep while driving: No (N/A. Don't drive) Takes day naps: Yes (3-4 times a week) Dreams during day naps: No Prior sleep studies: Yes Year and Where: 2012 [facility] Care Type of Sleep Study: Polysomnography Additional HPI information: LATHA CHAPMAN was diagnosed to have mild, AHI 9.8, obstructive sleep apnea- hypopnea syndrome in 2012 but did not start CPAP therapy and returns today to re-establish care. He was seeing his PCP who sent him here for evaluation. He had a stoke 1 year ago. He is now back functional to about 20%. - Parasomnia Symptoms Ever been unable to move upon waking from sleep: No Walks in sleep: No Talks in sleep: Yes (used to) Ever acted out dreams in sleep: No Ever felt weak in the knees when startled or emotional: No Bothered by creepy, crawly, restless sensations in legs: No Problems with memory or concentration: Yes Subjective Initial [place] Sleepiness Scale score: 13 (in 2020 (14 in 2012) Past Medical History Past Medical History: reports: Stroke, Impotence, Depression, Mood disorder, GERD, Other (hx of seizures) Social History The patient's occupation is not employed. Patient is Single and lives in [place]. Have you smoked in the past 12 months: No Cigarettes per day (20/pack): 10 Years of smokin Quit date: 1995 Smoking Pack Years: 2.0 Alcohol use: Yes Alcohol amount and frequency: rarely Caffeine use: Yes Caffeine amount and frequency: Coffee 3-4 cups morning Family History Family history of sleep disordered breathing: No Family Hx Sleep Apnea: Father: Snoring Allergies and Home Medications Drug allergies reviewed: Yes (NKDA) Home medication list reviewed: Yes Allergy and home medication list: Lamotrigine 200 mg TID Topiramate 50 mg, 1/2 tab BID Famotidine 40 mg Clopidogrel 75 mg Atorvastatin 20 mg Duloxetine 30 mg Bupropion XL 150 mg Review of Systems Gastrointestinal: reports: heartburn Urinary: reports: urgency, impotence Neurological: reports: headaches, seizure, other (Had stroke) Psychiatric: reports: depression Ear/Nose/Throat: reports: injury to nose, tonsillectomy, wisdom teeth removed Endocrine: reports: sluggishness (tired), too hot or cold (cold), unexplained weakness Musculoskeletal: reports: joint pain (stiffness), back pain Immunologic: reports: sneezing (runny nose), rash Physical Exam Blood Pressure: 147/97 Cuff size: wrist Heart Rate: 63 O2 Saturation: 99 Height: 5 ft 7 in Weight: 136 lb Body Mass Index: 21.2 BMI Classification: Healthy weight Heart: regular rate and rhythm Lungs: clear bilaterally Impression and Plan 1. Suspected Obstructive Sleep Apnea-Hypopnea Syndrome, as previously diagnosed in 2013 with mild obstructive sleep apnea and has been doing positional therapy. He continues to have loud and irregular snoring, unrefreshed sleep, cognitive impairment, and excessive daytime sleepiness. I recommend proceeding to polysomnography to confirm the diagnosis and to assess severity. If the patient has significant sleep disordered breathing, a manual CPAP titration study will also be performed to find the optimal treatment pressure. I reviewed with the patient what the sleep studies involve and after some discussion, obtained agreement to proceed. The pathophysiology of obstructive sleep apnea-hypopnea syndrome was discussed with the patient and health risks of cardiovascular and cerebrovascular disease if not treated. Patient voiced understanding and agreement to proceed. * Schedule polysomnography +- manual CPAP titration study and return in 1-2 weeks after the study to discuss result and initiate therapy. * Avoid long distance driving or driving when feeling sleepy. * Avoid alcohol, sedative and muscle relaxant around bedtime. * Attempt to lose weight. * Review instructions provided by trained office staff on how to prepare for the sleep study. * Return for follow-up after sleep study completed. Counseling Topics: Weight control Visit Type: In Office Time Spent with Patient (minutes): 33 Provider Statement: I spent 100% of the Face to Face Visit with the patient with greater than 50% spent counseling the patient and coordination of care.
[2020-09-15 14:00] VITALS: BP 147/97
== END 2020-09-15 13:05 | disposition home or self-care (01) ==
LOC: SC 13:04
PROVIDERS: ATTEND Nurse Practitioner Family
DX: G47.33 Obstructive sleep apnea (adult) (pediatric) (principal)
CPT/HCPCS: 99203; G0463; 99212

== ENCOUNTER 2020-09-18 18:52 | Emergency (ER) | payer MEDICARE, MEDICAID ==
--- NOTE | 2020-09-18 19:46 | CT Report ---
PROCEDURE: HEAD WO INDICATIONS: fall, headache, takes plavix TECHNIQUE: Noncontrast 4.5 mm thick angled axial sections acquired from the foramen magnum to the vertex. For r adiation dose reduction, the following was used: automated exposure control, adjustment of mA and/or kV according to patient size. COMPARISON: CT head, CTA head and neck 09/05/2019 FINDINGS: Image quality: Excellent. CSF spaces: Basal cisterns are patent. No extra-axial fluid collections. Ventricles are normal in size and shape. Brain: No midline shift. No intracranial masses or hemorrhage. Reece-white matter interface is norm al. Encephalomalacia is present within the left frontal temporal lobe system with old infarction. Skull and face: Calvarium and visualized facial bones are intact, without suspicious lesions. Sinuses: Visualized sinuses and mastoids are clear. IMPRESSION: 1. No acute intracranial process. Reviewed by: Indira Carrasco MD on 09/18/2020 7:44 PM PST Approved by: Indira Carrasco MD on 09/18/2020 7:44 PM PST Station ID: [id number]
--- NOTE | 2020-09-18 19:52 | ED Physician Documentation ---
PD HPI HEAD INJURY - Stated complaint Stated Complaint: FALL - HIT HEAD - Chief complaint Chief Complaint: Trauma Hd/Nk - History obtained from History obtained from: Patient - History of Present Illness Mechanism of head injury: Fell Where head injury occurred: Home Timing - onset: Other (yesterday and today) Pain level max: 5 Pain level now: 3 Location of injury: Back Quality of pain: Throbbing, Aching, Dull Associated symptoms: Other (feels "off"). No: LOC, AMS, Amnesia, Nausea / vomiting, Neck pain, Paresthesias, Seizures, Ear drainage, Nasal drainage Symptoms improve with: Rest Symptoms worsen with: Movement Contributing factors: Anticoagulated (plavix) Recently seen: Not recently seen - Additional information Additional information: Patient states fell x 2 recently and struck his head twice. He takes plavix. Review of Systems Ten Systems: 10 systems reviewed and negative Constitutional: denies: Fever, Chills GI: denies: Nausea, Vomiting, Diarrhea Skin: denies: Rash Musculoskeletal: denies: Neck pain, Back pain Neurologic: denies: Generalized weakness, Focal weakness, Numbness, Syncope, Seizure, Confused, LOC PD PAST MEDICAL HISTORY - Past Medical History Past Medical History: Yes Cardiovascular:  Neuro: CVA Endocrine/Autoimmune: HyPOthyroidism GI: GERD Psych: Depression, Anxiety - Past Surgical History Past Surgical History: Yes HEENT: Tonsil/Adenoidectomy - Present Medications Home Medications: Ambulatory Orders Medication Instructions Recorded Confirmed Topiramate [Topamax] 50 mg PO BID 09/23/13 07/03/17 lamoTRIgine [Lamictal Odt] 200 mg PO TID 09/23/13 07/03/17 Atorvastatin [Lipitor] 20 mg PO DAILY 09/18/20 09/18/20 Clopidogrel [Plavix] 75 mg PO DAILY 09/18/20 09/18/20 DULoxetine [Cymbalta] 30 mg PO DAILY 09/18/20 09/18/20 Famotidine [Acid-Pep] 20 mg PO DAILY 09/18/20 09/18/20 buPROPion HCL [Bupropion Xl] 150 mg PO DAILY 09/18/20 09/18/20 - Allergies Allergies/Adverse Reactions: Allergies Allergy/AdvReac Type Severity Reaction Status Date / Time No Known Drug Allergies Allergy Verified 09/18/20 18:57 - Social History Does the pt smoke?: No Smoking Status: Never smoker Does the pt drink ETOH?: Yes Does the pt have substance abuse?: No - Immunizations Immunizations are current?: Yes PD ED PE NORMAL - Vitals Vital signs reviewed: Yes - General General: Alert and oriented X 3, No acute distress, Well developed/nourished - HEENT HEENT: Atraumatic, PERRL, Ears normal, Moist mucous membranes - Neck Neck: Supple, no meningeal sign - Cardiac Cardiac: RRR, Strong equal pulses - Respiratory Respiratory: No respiratory distress, Clear bilaterally - Abdomen Abdomen: Soft, Non tender, Non distended - Derm Derm: Warm and dry - Extremities Extremities: No edema, No calf tenderness / cord - Neuro Neuro: Alert and oriented X 3, potato loader 2-12 intact, No motor deficit, No sensory deficit, Normal speech Eye Opening: Spontaneous Motor: Obeys Commands Verbal: Oriented GCS Score: 15 - Psych Psych: Normal mood, Normal affect Results - Vitals Vitals: Vital Signs - 24 hr 09/18/20 09/18/20 09/18/20 18:58 19:37 20:04 Temperature 36.3 C L 36.3 C L 36.5 C Heart Rate 88 88 81 Respiratory 20 20 20 Rate Blood Pressure 151/107 H 151/107 H 137/99 H O2 Saturation 100 100 100 Oxygen O2 Source Room air - Rads (name of study) head CT Radiology: Prelim report reviewed, EMP read contemporaneously, See rad report (1. No acute intracranial process. ) PD MEDICAL DECISION MAKING - ED course Complexity details: reviewed results, re-evaluated patient, considered differential, d/w patient ED course: 65-year-old male presents to the emergency department after 2 falls at home in which he struck his head. He has been unsteady on his feet since his stroke. He states this is no different. No changes to his medications. No acute findings on head CT. We will have him follow-up with his doctor for further care. Patient counseled regarding signs and symptoms for which I believe and urgent re-evaluation would be necessary. Patient with good understanding of and agreement to plan and is comfortable going home at this time This document was made in part using voice recognition software. While efforts are made to proofread this document, sound alike and grammatical errors may occur. Departure - Departure Disposition: 01 Home, Self Care Clinical Impression: Closed head injury Qualifiers: Encounter type: initial encounter Qualified Code(s): S09.90XA - Unspecified injury of head, initial encounter Condition: Good Instructions: ED Head Injury Closed Follow-Up: Kolby Andrew MD [Primary Care Provider] - Within 1 week Comments: Your head CT does not show any acute abnormalities today. Please follow-up with your doctor for further care. Return if you worsen. Discharge Date/Time: 09/18/20 20:11
[2020-09-18 20:11] VITALS: BP 137/99
== END 2020-09-18 20:11 | disposition home or self-care (01) ==
LOC: ED 18:52
DX: S09.90XA Unspecified injury of head, initial encounter (principal); W01.198A Fall on same level from slipping, tripping and stumbling with subsequent striking against other object, initial encounter; Z91.81 History of falling; Y92.009 Unspecified place in unspecified non-institutional (private) residence as the place of occurrence of the external cause; I69.398 Other sequelae of cerebral infarction; R26.81 Unsteadiness on feet; Z79.02 Long term (current) use of antithrombotics/antiplatelets
CPT/HCPCS: 99284

== ENCOUNTER 2020-10-28 08:00 | Outpatient (CLI) | payer MEDICARE, MEDICAID ==
[2020-10-28 12:52] LABS: THYROID STIMULATING HORMONE 2.59 uIU/mL (0.34-5.60)
[2020-10-28 12:53] LABS: FREE T4 (FREE THYROXINE) 0.81 ng/dL (0.58-1.64)
[2020-10-31 15:36] LABS: METHYLMALONIC ACID 310 nmol/L (87-318)
== END 2020-10-28 23:59 | disposition home or self-care (01) ==
LOC: LAB.WCP 08:00
PROVIDERS: ATTEND Psychiatry & Neurology Neurology
DX: E56.9 Vitamin deficiency, unspecified (principal); R53.83 Other fatigue
CPT/HCPCS: 36415; 81599; 82306; 82607; 82652; 83921; 84402; 84403; 84439; 84443

== ENCOUNTER 2020-11-04 08:00 | Outpatient (CLI) | payer MEDICARE, MEDICAID ==
[2020-11-04 11:38] LABS: BASOPHILS % (AUTO) 0.6 %; EOSINOPHILS # (AUTO) 0.1 10^3/uL (0.0-0.7); EOSINOPHILS % (AUTO) 1.9 %; HCT - HEMATOCRIT 43.3 % (42.0-52.0); HGB - HEMOGLOBIN 14.8 g/dL (14.0-18.0); LYMPHOCYTES # (AUTO) 1.9 10^3/uL (1.5-3.5); LYMPHOCYTES % (AUTO) 37.1 %; MEAN CORPUSCULAR HEMOGLOBIN 31.2 pg (27.0-31.0); MEAN CORPUSCULAR HGB CONC 34.2 g/dL (32.0-36.0); MEAN CORPUSCULAR VOLUME 91.4 fL (80.0-94.0); MEAN PLATELET VOLUME 9.8 fL (7.4-11.4); MONOCYTES # (AUTO) 0.4 10^3/uL (0.0-1.0); MONOCYTES % (AUTO) 8.3 %; NEUTROPHILS # (AUTO) 2.7 10^3/uL (1.5-6.6); NEUTROPHILS % (AUTO) 51.7 %; PLT - PLATELET COUNT 277 10^3/uL (130-450); RED BLOOD COUNT 4.74 10^6/uL (4.70-6.10); RED CELL DISTRIBUTION WIDTH 12.4 % (12.0-15.0); WHITE BLOOD COUNT 5.2 x10^3/uL (4.8-10.8)
[2020-11-04 11:50] LABS: ALBUMIN 4.3 g/dL (3.2-5.5); ALBUMIN/GLOBULIN RATIO 1.5 (1.0-2.2); BILIRUBIN,TOTAL 1.1 mg/dL (0.2-1.0); CALCIUM 8.8 mg/dL (8.5-10.3); CREATININE 0.9 mg/dL (0.6-1.2); POTASSIUM 3.7 mmol/L (3.5-5.0); TOTAL PROTEIN 7.1 g/dL (6.7-8.2)
== END 2020-11-04 23:59 | disposition home or self-care (01) ==
LOC: LAB.N 08:00
PROVIDERS: ATTEND Nurse Practitioner
DX: R10.9 Unspecified abdominal pain (principal)
CPT/HCPCS: 36415; 80053; 82150; 83690; 85025

== ENCOUNTER 2020-11-17 13:22 | Outpatient (CLI) | payer MEDICARE, MEDICAID ==
[2020-11-17] MEDS ORDERED: IOPAMIDOL-300 100 ML VIAL ONE ×2 (13:25→14:35)
[2020-11-17] MEDS ORDERED: IOPAMIDOL-300 50 ML VIAL ONE (13:26)
--- NOTE | 2020-11-17 15:31 | CT Report ---
PROCEDURE: Abdomen/Pelvis W INDICATIONS: LLQ ABD PAIN CONTRAST: IV CONTRAST: Isovue 300 ml: 100 PO CONTRAST: Isovue 300 ml50 TECHNIQUE: After the administration of IV and oral contrast, 5 mm thick sections acquired from the diaphragms to the symphysis. 5 mm thick coronal and sagittal reformats were acquired. For radiation dose reducti on, the following was used: automated exposure control, adjustment of mA and/or kV according to connie ent size. COMPARISON: None. FINDINGS: Image quality: Excellent. ABDOMEN: Lung bases: Lung bases are clear. Heart size is normal. Solid organs: Liver and spleen are normal in size and enhancement. Gallbladder is grossly unremarka ble Biliary system is non dilated. Pancreas enhances normally. No adrenal nodules. Kidneys demons trate normal size and enhancement, without hydronephrosis. Peritoneum and bowel: Diverticulosis of the descending and sigmoid colon is present. No evidence of acute superimposed diverticulitis. Bowel loops demonstrate otherwise normal wall thickness and calibe r. Normal appendix (series 3 image 55). No free fluid or air. Nodes and vessels: No retroperitoneal or mesenteric adenopathy by size criteria. Aorta and inferior vena cava are normal in size. Miscellaneous: No ventral hernias. PELVIS: Genitourinary: Bladder wall thickness is normal. Miscellaneous: No inguinal hernias or adenopathy. Bones: No suspicious bony lesions. Moderate chronic T12 compression fracture. Mild chronic L1 and L 2 fractures. Mild kyphosis at T11-T12. No acute appearing vertebral body compression fractures. IMPRESSION: 1. No acute process. 2. No evidence of diverticulitis. 3. Normal appendix. Reviewed by: Ata Molina MD on 11/17/2020 3:30 PM PDT Approved by: Ata Molina MD on 11/17/2020 3:30 PM PDT Station ID: [id number]
[2020-11-17] MEDS ORDERED: IOPAMIDOL-300 100 ML VIAL IVP ONE (18:53)
[2020-11-17] MEDS ORDERED: IOPAMIDOL-300 50 ML VIAL PO ONE (18:53)
== END 2020-11-17 13:23 | disposition home or self-care (01) ==
LOC: DI 13:22
PROVIDERS: ATTEND Internal Medicine
DX: R10.32 Left lower quadrant pain (principal)
CPT/HCPCS: 74177; Q9967

== ENCOUNTER 2020-12-08 08:00 | Outpatient (CLI) | payer MEDICARE, MEDICAID ==
[2020-12-08 12:42] LABS: PSA FREE 0.44 ng/mL (0.16-2.81)
[2020-12-08 12:43] LABS: PSA TOTAL 4.6 ng/mL (0.000-2.000)
== END 2020-12-08 23:59 | disposition home or self-care (01) ==
LOC: LAB.WCP 08:00
PROVIDERS: ATTEND Internal Medicine
DX: R97.20 Elevated prostate specific antigen [PSA] (principal)
CPT/HCPCS: 36415; 84153; 84154

== ENCOUNTER 2021-02-03 09:38 | Outpatient (CLI) | payer MEDICARE, MEDICAID | END 2021-02-03 23:59 | disposition home or self-care (01) | LOC: LAB.N 09:38 | PROVIDERS: ATTEND Family Medicine | DX: L02.31 Cutaneous abscess of buttock (principal) | CPT/HCPCS: 87070; 87181; 87205 ==

== ENCOUNTER 2021-07-03 21:30 | Emergency (ER) | payer MEDICARE, MEDICAID ==
[2021-07-03] MEDS ORDERED: LIDOCAINE 1%-EPI 1:100000 20 ML MDV SUBQ STA (22:11)
[2021-07-03] MEDS ORDERED: ACETAMINOPHEN 325 MG TABLET PO STA (22:12)
[2021-07-03] MEDS ORDERED: cephALEXin 250 MG CAPSULE PO STA (22:13)
--- NOTE | 2021-07-03 22:17 | ED Physician Documentation ---
History of Present Illness - Stated complaint Stated Complaint: RT LEG PX,RASH/SWELLING - Chief complaint Chief Complaint: General - History obtained from History obtained from: Patient - Additonal information Additional information: 65-year-old man presents with right posterior thigh erythema, swelling, and pain gradual in onset over the past week associated with a "pimple that burst". Denies fever, trauma, or issues with that area in the past. Review of Systems Constitutional: denies: Fever, Chills Skin: reports: Other (erythema and swelling) Musculoskeletal: reports: Extremity pain PD PAST MEDICAL HISTORY - Past Medical History Past Medical History: Yes Cardiovascular:  Neuro: CVA Endocrine/Autoimmune: HyPOthyroidism GI: GERD Psych: Depression, Anxiety - Past Surgical History Past Surgical History: Yes HEENT: Tonsil/Adenoidectomy - Present Medications Home Medications: Ambulatory Orders Medication Instructions Recorded Confirmed Topiramate [Topamax] 50 mg PO BID 09/23/13 07/03/17 lamoTRIgine [Lamictal Odt] 200 mg PO TID 09/23/13 07/03/17 Atorvastatin [Lipitor] 20 mg PO DAILY 09/18/20 09/18/20 Clopidogrel [Plavix] 75 mg PO DAILY 09/18/20 09/18/20 DULoxetine [Cymbalta] 30 mg PO DAILY 09/18/20 09/18/20 Famotidine [Acid-Pep] 20 mg PO DAILY 09/18/20 09/18/20 buPROPion HCL [Bupropion Xl] 150 mg PO DAILY 09/18/20 09/18/20 cephALEXin [Keflex] 500 mg PO Q6H #28 tab 07/03/21 - Allergies Allergies/Adverse Reactions: Allergies Allergy/AdvReac Type Severity Reaction Status Date / Time No Known Drug Allergies Allergy Verified 07/03/21 21:47 - Social History Does the pt smoke?: No Smoking Status: Never smoker Does the pt drink ETOH?: Yes Does the pt have substance abuse?: No - Immunizations Immunizations are current?: Yes PD ED PE NORMAL - Vitals Vital signs reviewed: Yes - General General: Alert and oriented X 3, No acute distress, Well developed/nourished - HEENT HEENT: Atraumatic, PERRL, EOMI - Derm Derm: Normal color, Warm and dry, Other (erythema and swelling to R posterior thigh with fluctuance c/w abscess) - Extremities Extremities: No deformity, Normal ROM s pain - Neuro Neuro: Alert and oriented X 3, No motor deficit, No sensory deficit - Psych Psych: Normal mood, Normal affect Results - Vitals Vitals: Vital Signs - 24 hr 07/03/21 21:44 Temperature 36.4 C L Heart Rate 87 Respiratory 16 Rate Blood Pressure 135/84 H O2 Saturation 100 Oxygen O2 Source Room air Procedures - Abscess I&D (location) Lower extremity right Preparation: Confirmed with ultrasound, Lidocaine 1%, With epi Incision: Incised with scalpel, Purulent drainage, Loculations broken, Irrigated, Packed, Culture obtained Other: Pt tolerated well, Dressing applied, Antibiotic prescribed PD MEDICAL DECISION MAKING - ED course ED course: 65yM p/w R posterior thigh abscess, drained without difficulty. return precautions given. patient will f/u for wound check in 48-72 hours. Departure - Departure Clinical Impression: Abscess Condition: Good Instructions: ED Abscess IandD Prescriptions: cephALEXin [Keflex] 500 mg PO Q6H #28 tab Comments: You are seen in the emergency department for an abscess which was drained. Should fill your antibiotic prescription and follow-up for wound check in 48 to 72 hours at urgent care or walk in clinic or with your pmd. Packing was placed and that should be removed at that time and you may need packing reinserted depending on what the wound looks like. Return to the emergency department if you develop fever with temperature higher than 100.4, any new or worsening symptoms or have other concerns.
[2021-07-03 22:57] VITALS: BP 138/84
--- NOTE | 2021-07-05 17:14 | ED Physician Documentation ---
ED Addendum - Addendum Addendum: 07/05/21 17:13 The culture obtained from the wound grew MRSA. He has been discharged on cephalexin. We will have the nurses call the patient see how he is doing but if any persistent signs of infection, will have them changed to doxycycline 100 mg twice a day for 7 days #14.
== END 2021-07-03 22:55 | disposition home or self-care (01) ==
LOC: ED 21:30
DX: L02.415 Cutaneous abscess of right lower limb (principal); B95.62 Methicillin resistant Staphylococcus aureus infection as the cause of diseases classified elsewhere
CPT/HCPCS: 10061; 87070; 87181; 87205; 99283; A9270

== ENCOUNTER 2022-08-04 15:08 | Outpatient (CLI) | payer MEDICARE, MEDICAID ==
--- NOTE | 2022-08-04 19:25 | DEXA Report ---
PROCEDURE: Dexa Spine and/or Hip INDICATIONS: LORDOSIS TECHNIQUE: Dual energy x-ray absorptiometry (DXA) was performed on a [employer] System. Regions measur ed are the AP Spine, femoral neck, and if needed forearm. COMPARISON: None. FINDINGS: Lumbar Spine: Bone Mineral Density 1.124 g/cm/cm,T score -0.8, normal Left Femoral Neck: Bone Mineral Density 0.658 g/cm/cm, T score -3.2, osteoporosis Left Hip: Bone Mineral Density 0.708 g/cm/cm,T score -2.7, osteoporosis (T score greater or equal to -1.0: NORMAL) (T score from -1.1 to -2.4: OSTEOPENIA) (T score less than or equal to -2.5 to: OSTEOPOROSIS) Impression: Bone mineral density within the osteoporosis range at the left hip. Fracture risk is increased. Patients with diagnosis of osteoporosis or osteopenia should have regular bone mineral density assess ment. For those eligible for Medicare, routine testing is allowed once every 2 years. Testing frequ ency can be increased for patients who have rapidly progressing disease or for those who are receivin g medical therapy to restore bone mass. Reviewed by: Sree Gentile MD on 08/04/2022 7:24 PM PST Approved by: Sree Gentile MD on 08/04/2022 7:24 PM PST Station ID: [id number]
== END 2022-08-04 15:09 | disposition home or self-care (01) ==
LOC: DI 15:08
PROVIDERS: ATTEND Nurse Practitioner
DX: M81.0 Age-related osteoporosis without current pathological fracture (principal)

== ENCOUNTER 2022-09-05 09:26 | Outpatient (CLI) | payer MEDICARE, MEDICAID ==
--- NOTE | 2022-09-05 11:52 | CARDIAC PROCEDURE NOTE ---
Stress Test Report Service Date: 09/05/22 Service Time: 11:00 Ordering Provider: Yesenia Juan ARNP Indication for Test: Assess for an ischemic contribution to patient's decreased exertional tolerance. Significant Medical History: Dionisio is referred for a treadmill stress echocardiogram today to assess for a gradual decrease in exertional tolerance. He has risk factors for coronary artery disease as elaborated below, and has had both a minor, and a more significant, stroke, the latter occurring about 3 years ago. He is not certain as to why he had the stroke (possibly due to carotid artery narrowing), but since this event he has had significant residual left-sided hemiparesis. He reports that during the recovery phase from his stroke he was gradually able to improve his ambulation, but over the intervening 3 years has had a slow decrease in exercise tolerance. His left leg is described as "balky" with walking, with this imposing some difficulty with walking. He describes a slowly increasing level of exertional fatigue and shortness of breath, though he denies an acute change or major severity to these symptoms. He denies any experience of chest discomfort, arm/jaw pain or numbness, resting or positional shortness of breath or ankle edema. Cardiac Risk Factors: Positive for hypertension, hyperlipidemia and family history of coronary artery disease in both his father and paternal grandfather. History of stroke x2, mechanism probably atherothrombotic. He denies a history of diabetes and has a non-contributory remote smoking history, quitting over 3 decades ago. Type of Stress Test: ETT with Echocardiography Procedure: -Exercise Treadmill Test- After signing informed consent, the patient underwent echocardiographic imaging at rest and then performed treadmill exercise using a Modified Alhaji protocol. The patient exercised for 7 minutes 37 seconds and achieved a peak heart rate of 138 (90 percent predicted maximum heart rate for age), and an estimated workload of 4.4 METS. Echo imaging was repeated immediately following conclusion of exercise. The test was terminated due to fatigue/shortness of breath. Resting heart rate: 65 Peak heart rate: 138 Normal response to exercise. Resting BP: 126/96 Peak BP: 211/114 Diastolic hypertension at rest with normal initial increase in SBP and abnormal further increase in DBP with e xercise; SBP decreased abnormally in late stage 2 of the exercise protocol (to 180/107) before increasing to 200/95 at exercise peak. Rhythm during exercise: Sinus rhythm throughout. Symptoms: Exercise was primarily limited by left leg weakness/awkwardness due to residual hemiparesis from stroke 3 years ago; fatigue and shortness of breath at peak exercise were described as moderate. EKG at rest showed normal sinus rhythm, normal in all aspects. EKG at peak stress showed no ischemia by EKG criteria. In Recovery heart rate rapidly and normally decreased towards baseline. Echo imaging performed at rest and with stress will be reported separately. IJoel MD, was present throughout this treadmill stress study and supervised it in its entirety. Summary: 1) Fair exercise tolerance as evidenced by achievement of only 4.4 METS, though TERESSA was almost average at -3%. Exercise limitation seeming as much due to musculoskeletal concerns as to dyspnea and fatigue. 2) Normal resting EKG. 3) Adequate level of exercise was achieved on this treadmill stress test. 4) Abnormal BP response to exercise. 5) No ischemic changes by EKG criteria were seen at peak stress. 6) Echo image interpretation reveals normal resting left ventricular size, wall thickness and systolic function, with appropriate hyperdynamic augmentation of all segments with exercise, indicating no evidence of prior infarct or inducible ischemia. No significant valvular abnormality, hypertrophy or elevation of estimated pulmonary artery systolic pressure seen on screening study. See separate echo report for more details.
== END 2022-09-05 09:27 | disposition home or self-care (01) ==
LOC: DI 09:26
PROVIDERS: ATTEND Nurse Practitioner
DX: R06.02 Shortness of breath (principal); I10 Essential (primary) hypertension; E78.5 Hyperlipidemia, unspecified; Z82.49 Family history of ischemic heart disease and other diseases of the circulatory system; Z84.89 Family history of other specified conditions; Z86.73 Personal history of transient ischemic attack (TIA), and cerebral infarction without residual deficits
CPT/HCPCS: 93350

== ENCOUNTER 2022-11-24 15:58 | Outpatient (CLI) | payer MEDICARE, MEDICAID ==
--- NOTE | 2022-11-24 18:58 | Ultrasound Report ---
PROCEDURE: Carotid Doppler Complete INDICATIONS: HIST OF STROKE TECHNIQUE: Color and pulse Doppler interrogation was performed of both carotid systems, with image documentation and velocity measurements. COMPARISON: CT angiogram of the neck 08/28/2019 FINDINGS: Right side: Brachial blood pressure: 123/81 mm Hg. Common carotid artery peak systolic velocity: 58 cm/sec. Internal carotid artery peak systolic velocity: 65 cm/sec. Internal carotid artery end diastolic velocity: 25 cm/sec. External carotid artery peak systolic velocity: 78 cm/sec. ICA/CCA peak systolic ratio: 1.1 . Reece scale imaging description: Mild plaque Percent internal carotid artery stenosis: Less than 50 percent stenosis. Vertebral artery: Flow direction is antegrade. Left side: Brachial blood pressure: 127/89 mm Hg. Common carotid artery peak systolic velocity: 65 cm/sec. Internal carotid artery peak systolic velocity: 65 cm/sec. Internal carotid artery end diastolic velocity: 31 cm/sec. External carotid artery peak systolic velocity: 38 cm/sec. ICA/CCA peak systolic ratio: 1.0 . Reece scale imaging description: Mild plaque Percent internal carotid artery stenosis: Less than 50 percent stenosis. Vertebral artery: Flow direction is antegrade. IMPRESSION: 1. In the right internal carotid artery, there is less than 50 percent stenosis based on peak systoli c velocity criteria. 2. In the left internal carotid artery, there is less than 50 percent stenosis based on peak systolic velocity criteria. 3. Antegrade blood flow within the right vertebral artery. 4. Antegrade blood flow within the left vertebral artery. The estimate of stenosis included in the report of the imaging study was calculated using the [facility]-end orsed standards of carotid artery stenosis. Reviewed by: Sree Akhtar MD on 11/24/2022 6:56 PM PDT Approved by: Sree Akhtar MD on 11/24/2022 6:56 PM PDT Station ID: [id number]
== END 2022-11-24 15:59 | disposition home or self-care (01) ==
LOC: DI 15:58
PROVIDERS: ATTEND Nurse Practitioner
DX: Z86.79 Personal history of other diseases of the circulatory system (principal); I65.23 Occlusion and stenosis of bilateral carotid arteries
CPT/HCPCS: 93880

== ENCOUNTER 2022-11-24 16:35 | Emergency (ER) | payer MEDICARE, MEDICAID ==
[2022-11-24 17:00] VITALS: BP 143/97
== END 2022-11-24 17:43 | disposition left against medical advice (07) ==
LOC: ED 16:35
DX: Z53.21 Procedure and treatment not carried out due to patient leaving prior to being seen by health care provider (principal); Z86.79 Personal history of other diseases of the circulatory system; I65.23 Occlusion and stenosis of bilateral carotid arteries
CPT/HCPCS: 93880

== ENCOUNTER 2022-11-25 12:00 | Emergency (ER) | payer MEDICARE, MEDICAID ==
[2022-11-25 12:21] VITALS: BP 143/97
[2022-11-25] MEDS ORDERED: SULFAMETH/TRIMETH DS 800/160 MG TABLET PO STA (12:50)
--- NOTE | 2022-11-25 12:55 | ED Physician Documentation ---
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 No drainage. No fevers. No chills. Nothing makes it better or worse. Review of Systems Constitutional: denies: Fever, Chills GI: denies: Vomiting Skin: denies: Rash Musculoskeletal: denies: Neck pain, Back pain Neurologic: denies: Headache PD PAST MEDICAL HISTORY - Past Medical History Past Medical History: Yes Cardiovascular:  Neuro: CVA Endocrine/Autoimmune: HyPOthyroidism GI: GERD Psych: Depression, Anxiety - Past Surgical History Past Surgical History: Yes HEENT: Tonsil/Adenoidectomy - Present Medications Home Medications: Ambulatory Orders Medication Instructions Recorded Confirmed Topiramate [Topamax] 50 mg PO BID 09/23/13 07/03/17 lamoTRIgine [Lamictal Odt] 200 mg PO TID 09/23/13 07/03/17 Atorvastatin [Lipitor] 20 mg PO DAILY 09/18/20 09/18/20 Clopidogrel [Plavix] 75 mg PO DAILY 09/18/20 09/18/20 DULoxetine [Cymbalta] 30 mg PO DAILY 09/18/20 09/18/20 Famotidine [Acid-Pep] 20 mg PO DAILY 09/18/20 09/18/20 buPROPion HCL [Bupropion Xl] 150 mg PO DAILY 09/18/20 09/18/20 cephALEXin [Keflex] 500 mg PO Q6H #28 tab 07/03/21 Sulfamethox/Trimeth 800/160 1 each PO BID #14 tablet 11/25/22 [Bactrim Ds 800/160] - Allergies Allergies/Adverse Reactions: Allergies Allergy/AdvReac Type Severity Reaction Status Date / Time No Known Drug Allergies Allergy Verified 11/25/22 12:08 - Social History Does the pt smoke?: No Smoking Status: Never smoker Does the pt drink ETOH?: Yes Does the pt have substance abuse?: No - Immunizations Immunizations are current?: Yes PD ED PE NORMAL - Vitals Vital signs reviewed: Yes - General General: Alert and oriented X 3, No acute distress - Derm Derm: Warm and dry - Extremities Extremities: Other (5 x 5 mm indurated erythematous area to the left inner thigh. No drainage. No fluctuance. There are several other small areas, 1 to 2 mm that appears similar. Approximately 4-5 areas total.) - Neuro Neuro: Alert and oriented X 3 - Psych Psych: Normal mood, Normal affect Results - Vitals Vitals: Vital Signs - 24 hr 11/25/22 12:05 Temperature 36.3 C L Heart Rate 73 Respiratory 16 Rate Blood Pressure 143/97 H O2 Saturation 100 Oxygen O2 Source Room air PD Medical Decision Making - ED course Complexity details: considered differential, d/w patient (Patient with what appears to be ) ED course: Patient with what appears to be a small early abscess to the left thigh, not large enough to drain. We will place on oral antibiotics and have him follow-up closely with his doctor. We will have him return if he worsens. There is no fluid to obtain a culture off at this time. Patient counseled regarding signs and symptoms for which I believe and urgent re-evaluation would be necessary. Patient with good understanding of and agreement to plan and is comfortable going home at this time This document was made in part using voice recognition software. While efforts are made to proofread this document, sound alike and grammatical errors may occur. Departure - Departure Disposition: 01 Home, Self Care Clinical Impression: Abscess Condition: Good Instructions: ED Staph Infec Abx Tx Only Follow-Up: Yesenia Juan ARNP [Primary Care Provider] - Within 3 Days (for wound check ) Prescriptions: Sulfamethox/Trimeth 800/160 [Bactrim Ds 800/160] 1 each PO BID #14 tablet Comments: Your prescription was sent to [facility] in [place]. Please follow-up with your doctor for further care. Please return if you worsen. You can apply warm compresses to the area as well. Please return for increasing swelling, pain or other new or worrisome symptoms.
== END 2022-11-25 13:16 | disposition home or self-care (01) ==
LOC: ED 12:00
DX: L02.416 Cutaneous abscess of left lower limb (principal)
CPT/HCPCS: 99282; 99283; A9270

== ENCOUNTER 2023-05-01 17:45 | Outpatient (CLI) | payer MEDICARE, MEDICAID | END 2023-05-01 17:46 | disposition EMS.NT | LOC: EMS 17:45 | DX: R20.0 Anesthesia of skin (principal) ==

== ENCOUNTER 2023-11-22 10:10 | Outpatient (CLI) | payer MEDICARE, MEDICAID ==
--- NOTE | 2023-11-23 01:20 | XRAY Report ---
PROCEDURE: Ankle 3+V LT INDICATIONS: SPRAIN OF OTHER LIGAMENT OF LEFT ANKLE TECHNIQUE: 3 views of the ankle were acquired. COMPARISON: None FINDINGS: Bones: No fractures or dislocations. Ankle mortise is normally aligned. No suspicious bony lesions . Soft tissues: Unremarkable without significant soft tissue swelling. No radiopaque foreign body. IMPRESSION: Unremarkable ankle radiographs Reviewed by: Charles Hillman MD on 11/23/2023 12:18 AM AKDT Approved by: Charles Hillman MD on 11/23/2023 12:18 AM AKDT Station ID: [id number]
== END 2023-11-22 10:11 | disposition home or self-care (01) ==
LOC: DI.N 10:10
PROVIDERS: ATTEND Family Medicine
DX: S93.492A Sprain of other ligament of left ankle, initial encounter (principal)